=== PATIENT | male | born 1980 | race Native Hawaiian/Other Pacific Islander ===

== ENCOUNTER 2018-12-03 16:04 | Outpatient (CLI) | payer OTHER | END 2018-12-03 22:42 | disposition home or self-care (01) | LOC: RAD 16:04 | DX: M77.8 Other enthesopathies, not elsewhere classified (principal) ==

== ENCOUNTER 2022-05-02 07:04 | Outpatient (CLI) | payer OTHER | END 2022-05-02 20:19 | disposition home or self-care (01) | LOC: US 07:04 | PROVIDERS: ATTEND Internal Medicine | DX: R74.01 Elevation of levels of liver transaminase levels (principal) ==

== ENCOUNTER 2022-08-29 17:14 | Outpatient (CLI) | payer OTHER | END 2022-08-29 19:06 | disposition home or self-care (01) | LOC: CT 17:14 | PROVIDERS: ATTEND Internal Medicine Cardiovascular Disease | DX: Z13.6 Encounter for screening for cardiovascular disorders (principal) ==

== ENCOUNTER 2023-01-30 17:16 | Outpatient (CLI) | payer OTHER | END 2023-01-30 19:11 | disposition home or self-care (01) | LOC: CT 17:16 | PROVIDERS: ATTEND Internal Medicine | DX: R06.02 Shortness of breath (principal) ==